=== PATIENT | female | born 1995 | race Hispanic/Latino ===

== ENCOUNTER 2025-06-07 03:33 | Emergency (ER) | payer SELFPAY ==
[2025-06-07 04:12] LABS: #Basophils 0.05 10x3/uL (0.0-0.2); #Eosinophils 0.11 10x3/uL (0.0-0.5); #Monocytes 0.50 10x3/uL (0.0-1.1); #Neutrophils 3.81 10x3/uL (1.5-8.4); %Basophils 0.7 % (0.0-2.0); %Eosinophils 1.6 % (0.0-6.0); %Lymphocytes 35.2 % (18.0-47.0); %Monocytes 7.2 % (0.0-10.0); %Neutrophils 55.2 % (40.0-75.0); Glucose, Urine (Dipstick) Normal (Negative); Hematocrit 36.2 % (34.9-44.5); Hemoglobin 12.1 g/dL (12.0-15.5); Leukocyte Negative (Negative); Mean Corpuscular Hemoglobin 27.6 pg (27.0-33.0); Mean Corpuscular Volume 82.6 fL (81.6-98.3); Platelet Count 290 10x3/uL (150-450); Protein, Urine (Dipstick) Negative (Neg-Trace); Red Blood Cell (RBC) Count 4.38 10x6/uL (3.90-5.03); Specific Gravity, Urine 1.010 (1.005-1.030); White Blood Cell (WBC) Count 6.91 10x3/uL (3.5-10.5)
[2025-06-07 04:27] LABS: ALT (SGPT) 14 U/L (Less than 34); AST (SGOT) 31 U/L (11-34); Albumin 4.1 g/dL (3.1-4.5); Alkaline Phosphatase 69 U/L (40-110); Anion Gap 12 mmol/L (10-20); BUN (Urea Nitrogen) 11 mg/dL (7.0-18.7); Bilirubin, Total 0.4 mg/dL (0.3-1.2); Calc. Creatinine Clearance 0 mL/min (70-130); Calcium 9.2 mg/dL (7.8-10.44); Carbon Dioxide 23 mmol/L (22-29); Chloride 107 mmol/L (98-107); Globulin 2.9 g/dL (2.4-3.5); Glucose 108 mg/dL (70-105); Potassium 3.8 mmol/L (3.5-5.1); Sodium 138 mmol/L (136-145)
[2025-06-07 04:32] LABS: CAUTI Indications for Culture Pregnancy; RBC/HPF 0-3 HPF (0-3); WBC/HPF None Seen HPF (0-3)
[2025-06-07 04:33] LABS: Bacteria/HPF Rare-Few HPF (None Seen)
[2025-06-07 04:36] LABS: Urine Culture Reflex Yes Yes
== END 2025-06-07 06:08 | disposition home or self-care (01) ==
LOC: CSHERS 03:33
DX: O20.0 Threatened abortion (principal); Z3A.01 Less than 8 weeks gestation of pregnancy
CPT/HCPCS: 76856; 80053; 81001; 84702; 85025; 86900; 86901; 87086

== ENCOUNTER 2025-06-09 06:00 | Emergency (ER) | payer SELFPAY | END 2025-06-09 08:03 | disposition home or self-care (01) | LOC: CSHERS 06:00 | DX: O03.4 Incomplete spontaneous abortion without complication (principal); Z3A.01 Less than 8 weeks gestation of pregnancy | CPT/HCPCS: 36415; 84702; 99284 ==